=== PATIENT | male | born 1970 | race Caucasian/White ===

== ENCOUNTER 2023-08-18 01:25 | Emergency (ER) | payer MEDICAID ==
[~2023-08-18] VITALS: Ht 160 cm; Wt 111.1 kg
[2023-08-18 02:03] VITALS: BP 150/100; PULSE 65; RESP 18; TEMP 96.7; O2SAT 97
[2023-08-18] MEDS ORDERED: TETRACAINE HCL/PF 0.5% OPTH 4 ML BTL OP ONE (02:25)
[2023-08-18] MEDS ORDERED: TOMOMETER 1 DEV DEV MC ONE (02:54)
[2023-08-18] MEDS ORDERED: ACET-8905 PO (03:14)
[2023-08-18] MEDS ORDERED: IBUP-2213 PO (03:14)
== END 2023-08-18 03:40 | disposition home or self-care (01) ==
LOC: MED 01:25
DX: H57.12 Ocular pain, left eye (principal); R51.9 Headache, unspecified; Z79.899 Other long term (current) drug therapy
CPT/HCPCS: 99282

== ENCOUNTER 2023-08-20 19:13 | Emergency (ER) | payer MEDICAID ==
[~2023-08-20] VITALS: Ht 170.2 cm; Wt 111.1 kg
[~2023-08-20 19:13] MED LIST: ACET-8905 PO; IBUP-2213 PO
[2023-08-20 19:18] VITALS: BP 149/88; PULSE 76; RESP 16; TEMP 97.7; O2SAT 97
[2023-08-20] MEDS ORDERED: ATA25 PO (20:00)
[2023-08-20 20:27] VITALS: BP 149/88; PULSE 76; RESP 16; TEMP 97.7; O2SAT 97
== END 2023-08-20 20:27 | disposition home or self-care (01) ==
LOC: MED 19:13
DX: G47.00 Insomnia, unspecified (principal); F41.9 Anxiety disorder, unspecified; Z79.899 Other long term (current) drug therapy
CPT/HCPCS: 99283